=== PATIENT | female | born 2000 | race Caucasian/White ===

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

== ENCOUNTER 2020-01-28 17:57 | Emergency (ER) | payer MEDICAID, SELFPAY ==
[2020-01-28 17:58] VITALS: BP 119/84; PULSE 89; RESP 16; TEMP 35.7; O2SAT 99; BMI 35.2
--- NOTE | 2020-01-28 18:34 | CT_ITS ---
STUDY: CT ABDOMEN AND PELVIS WITHOUT CONTRAST REASON FOR EXAM: Female, 19 years old. ABD PAIN/RECTAL BLEEDING RADIATION DOSAGE (If Supplied By Facility): CTDIvol = ( 14.08 ) mGy, DLP = ( 1201.57 ) mGycm TECHNIQUE: Transaxial images were obtained from the dome of the diaphragm to the symphysis pubis without oral contrast, and without intravenous contrast. Sagittal and coronal images were reconstructed. Individualized dose optimization techniques were used for this CT. COMPARISON: None. FINDINGS: The visualized lung bases are unremarkable. The visualized portions of the heart are within normal limits. Normal liver. Normal gallbladder and extrahepatic biliary system. Normal spleen. Normal pancreas. Normal bilateral adrenal glands. Normal right kidney. Normal left kidney. Normal visualized stomach. Normal small intestine. Normal colon. The appendix is visualized and appears normal. Normal abdominal aorta. Normal inferior vena cava. Normal retroperitoneum. Incompletely distended thick-walled bladder likely of no significance Normal abdominal wall. Normal osseous structures. CT/Abdomen/Pelvis W IV Cont ONLY IMPRESSION: Normal unenhanced CT of the abdomen and pelvis. Electronically Signed: Houston Saul MD at 19:39 EST , Service support ,
--- NOTE | 2020-01-28 18:41 | ED.DCSUM_ITS ---
History of Present Illness Chief Complaint: GI Bleed Informant: Patient - Abdominal Pain/Flank Pain Onset: Today Context: Sudden Onset Timing: Intermittent Quality: Aching Location: Diffuse - Nausea/Vomiting/Emesis GI Symptom: Nausea. Negative for: Vomiting - Diarrhea/Melena/Hematochezia GI Symptom: Hematochezia. Negative for: Diarrhea, Melena Associated Symptoms: Negative for: Dysuria, Frequency, Hematuria Narrative: Patient is a 19-year-old female that denies any significant past medical history presenting with bright red blood per rectum. Patient states she had a normal soft bowel movement this morning. This evening she is over at her grandmother's house and was urinating. She felt that she needed to have a bowel movement but nothing really came out. She then wiped at her rectum just to make sure and knows that there was a large amount of bright red blood and some clots. She states it was heavier than her normal period flow. She is certain it was coming from her rectum however and not her vagina. She states her urine was yellow. She then started to have a copper taste in her mouth and diffuse abdominal discomfort. She came to the emergency room for further evaluation. She denies any history of GI bleeds. She denies any family history of inflammatory bowel disease. She is not on any blood thinners. She denies any bleeding history. No other complaints at this time. Past Medical History - Allergies and Home Meds Allergies/Adverse Reactions: Allergies No Known Allergies Allergy (Verified 01/28/20 18:00) Primary Care Physician: Uzma Quintanilla MD [STAFF PHYSICIAN] - Smoking Status: Current some day smoker Review of Systems General: Denies: Chills, Fever, Sweats Eyes: Denies: Visual changes - bilaterally, Diplopia ENT: Denies: Rhinorrhea, Sore throat Cardiovascular: Denies: Chest pain, Palpitations Respiratory: Denies: Dyspnea, Cough, Dyspnea on exertion Gastrointestinal: Reports: Abdominal pain, Hematochezia. Denies: Nausea, Vomiting, Diarrhea, Melena Genitourinary: Denies: Dysuria, Hematuria, Frequency Musculoskeletal: Denies: Back pain, Extremity Pain Skin: Denies: Rash, Wounds Neurological: Denies: Headache, Weakness, Numbness Physical Exam Vital Signs/Narrative: Vital Signs Temp Pulse Resp BP Pulse Ox 01/28/20 17:58 96.3 F L 89 16 119/84 H 99 Inital Vital Signs reviewed: Yes General: Well nourished, Well developed, No Acute Distress Head: Normocephalic, Atraumatic Eyes: Perrl, EOMI. Negative for: Pale conjunctiva ENT: Moist mucous membranes, No rhinorrhea Neck: Supple, Nontender, No JVD Cardiovascular: Regular rate, Regular rhythm, No murmurs Respiratory: No distress, CTA bilaterally, Chest nontender Abdomen: Soft, Nontender, Nondistended, Normal bowel sounds. Negative for: Guarding, Rebound tenderness Rectal: Nontender, - - No hemorrhoids or fissures appreciated. Bright red blood per rectum present Back: Nontender, Normal Inspection Extremities: Nontender, No edema Skin: Normal color, No rash Neurological: Alert, Oriented x3, Cranial nerves II-XII grossly intact, Normal Strength, Normal Sensation Psychological: Normal affect, Normal Mood Diagnostic/Tx/Re-eval Clinical Impression(s) from Imaging Studies Abdomen/Pelvis CT 01/28/20 18:34 IMPRESSION: Normal unenhanced CT of the abdomen and pelvis. Electronically Signed: Houston Saul MD at 19:39 EST , Service support , Laboratory Data 01/28/20 01/28/20 01/28/20 18:40 18:45 18:45 WBC 9.2 RBC 4.27 Hgb 13.2 Hct 40.4 MCV 94.6 MCH 30.9 MCHC 32.7 RDW Std Deviation 40.9 RDW Coeff of Cassia 11.9 Plt Count 335 MPV 10.5 Immature Gran % (Auto) 0.200 Neut % (Auto) 57.1 Lymph % (Auto) 33.3 [place] % (Auto) 7.7 Eos % (Auto) 1.3 Baso % (Auto) 0.4 Absolute Neuts (auto) 5.3 Absolute Lymphs (auto) 3.07 Nucleated RBC % 0 Sodium 141 Potassium 3.7 Chloride 105 Carbon Dioxide 31.0 Anion Gap 5 BUN 10 Creatinine 0.77 Estim Creat Clear Calc 109.10 Est GFR (MDRD) Af Amer 122 Est GFR (MDRD) Non-Af 101 BUN/Creatinine Ratio 12.9 Glucose 78 Calcium 9.6 Total Bilirubin 0.20 AST 11 L ALT 32 Alkaline Phosphatase 90 Total Protein 8.6 H Albumin 4.0 Globulin 4.6 H Albumin/Globulin Ratio 0.9 Lipase 56 L Urine Color Yellow Urine Clarity Clear Urine pH 6.5 Ur Specific [place] 1.015 Urine Protein 30 H Urine Glucose (UA) Normal Urine Ketones Negative Urine Occult Blood 250 H Urine Nitrite Negative Urine Bilirubin Negative Urine Urobilinogen Normal Ur Leukocyte Esterase 100 H Urine RBC 0-5 SEEN Urine WBC 0-5 SEEN Ur Squamous Epith Cells 5-10 SEEN Urine Bacteria 0 SEEN Urine Mucus 0 SEEN Urine Test Negative - Medical Decision Making Evaluated for 1 episode of bright red blood per rectum. She notes she does have a history of acid reflux which she takes Tums and Prilosec for. She has some evidence of bleeding on rectal exam but no active bleeding. No hemorrhoids appreciated. She is hemodynamically stable in the ER. Her abdomen is soft and nontender. Did obtain a CT given the fact that she was having abdominal pain earlier and this was negative. Her hemoglobin is normal. No acute abnormalities were found. I think patient stable for outpatient follow-up. She not currently have a primary care doctor so she referred to 1 as well as a surgeon in case she has further bleeding and needs to be scoped. Patient verbalizes agreement understand this plan. She discharged home in stable condition. ED Disposition - Plan for ED Patient: Disposition: Home or Assisted Living Diagnosis: Bright red blood per rectum Instructions: ED Hematochezia Stable Referrals: Uzma Quintanilla MD [STAFF PHYSICIAN] - Nathan Hanna MD [STAFF PHYSICIAN] -
[2020-01-28 18:53] LABS: Bacteria 0 SEEN /hpf (None Seen); Mucous, Urine 0 SEEN /hpf (<or=2+)
[2020-01-28 18:56] LABS: Absolute Lymphocyte Count 3.07 X10^3/uL (0.83-4.51); Absolute Neutrophil Count 5.3 X10^3/uL (2.0-7.7); Basophil# 0.04 X10^3/uL; Basophil% 0.4 % (0-1); Eosinophil# 0.12 X10^3/uL; Eosinophils% 1.3 % (0-5); Hematocrit 40.4 % (37-47); Hemoglobin 13.2 g/dL (12.0-15.0); Lymphocyte # 3.07 X10^3/ul (4.0); Lymphocyte % 33.3 % (19-41); Mean Corp Hgb Conc 32.7 g/dL (32-36); Mean Corpuscular Hgb 30.9 pg (27.0-32.0); Mean Corpuscular Volume 94.6 fL (81-99); Mean Platelet Vol. 10.5 fl (6.2-12.0); Monocyte# 0.71 X10^3/uL; Monocyte% 7.7 % (0-10); NRBC Flagged by Analyzer 0 % (0-5); Neutrophil # 5.25 X10^3/uL (2.7-7.7); Neutrophil % 57.1 % (47-70); Platelet Count 335 K/mm3 (150-450); RBC Distribution Width CV 11.9 % (11.6-14.6); RBC Distribution Width SD 40.9 fl (35.1-43.9); Red Blood Count 4.27 M/mm3 (4.2-5.4); White Blood Count 9.2 K/mm3 (4.4-11.0)
[2020-01-28 19:00] LABS: Color, Urine Yellow (Yellow); Glucose, Dipstick Normal (Normal); Ketone-Dipstick Negative (Negative); Leukocyte Esterase-Dipstick 100 /ul (Negative); Nitrite-Dipstick Negative (Negative); Occult Blood-Urine 250 /ul (Negative); Protein-Dipstick 30 mg/dl (Negative); Specific Gravity, Urine 1.015 (1.002-1.030); Urine Bilirubin Dipstick Negative (Negative); Urine Clarity Clear (Clear); Urine Urobilinogen Normal (Normal); Urine pH 6.5 (5.0 - 8.0)
[2020-01-28 19:12] LABS: Internal QC Validated? YES +Cl - CLEAR BKGD; Pregnancy, Urine Negative Negative
[2020-01-28 19:13] LABS: Red Blood Cells-Urine 0-5 SEEN /hpf (0-5); Squamous Epithelial Cells - UA 5-10 SEEN /hpf (5-10); White Blood Cells 0-5 SEEN /hpf (0-5)
[2020-01-28 19:14] LABS: ALB/GLOB Ratio 0.9 RATIO (0.9-2.4); AST(SGOT) 11 U/L (15-37); Alanine Aminotransfer ALT/SGPT 32 U/L (13-56); Alkaline Phosphatase 90 U/L (45-117); Anion Gap 5 (5-15); BUN 10 mg/dL (7-18); BUN/Creat Ratio 12.9 RATIO (10-20); Calcium,Total 9.6 mg/dL (8.5-10.1); Chloride 105 mmol/L (98-107); Creatinine, Serum 0.77 mg/dL (0.55-1.02); EST Glomerular Filtration Rate 101 mL/min (>60); Est Glom Filt Rate - Afr Amer 122 mL/min (>60); Globulin 4.6 g/dL (2.2-4.2); Glucose 78 mg/dL (74-106); Lipase 56 U/L (73-393); Potassium 3.7 mmol/L (3.5-5.1); Protein, Total 8.6 g/dL (6.4-8.2); Sodium Level 141 mmol/L (136-145)
[2020-01-28 20:15] VITALS: BP 120/70; PULSE 68; RESP 16; O2SAT 98
== END 2020-01-28 20:16 | disposition home or self-care (01) ==
PROVIDERS: Emergency Provider Emergency Medicine
DX: K92.2 Gastrointestinal hemorrhage, unspecified (principal); F17.200 Nicotine dependence, unspecified, uncomplicated
CPT/HCPCS: 74177; 80053; 81001; 81025; 83690; 85025; 99283; Q9967; A4216

== ENCOUNTER 2020-05-19 16:05 | Emergency (ER) | payer MEDICAID, SELFPAY ==
[2020-05-19 16:06] VITALS: BP 136/78; PULSE 93; RESP 16; TEMP 36; O2SAT 98; BMI 34.6
--- NOTE | 2020-05-19 16:37 | ED.VIS.GEN ---
History of Present Illness Chief Complaint: GI Bleed Informant: Patient Narrative: Patient is a 19-year-old female presenting with bright red blood per rectum. Patient's been having intermittent episodes of this for the past few months. She has been following with Dr. Hanan, is actually scheduled to have endoscopy tomorrow for further evaluation. Patient is currently on Carafate and Pepcid. Patient states she has had some chronic epigastric burning but this is unchanged. She not had any bleeding a couple days but when she got home she had a bowel movement and with that had a large amount of blood. She states her some small amounts of clots. She denies any associated pain of her rectal area. Patient states she has been having episodes like this and has weather during the scope. She is nervous about the bleeding and is not sure if she should still have the scope since she had another episode of bleeding which is why she came into the emergency room to be evaluated further. She states she been feeling nauseous and lightheaded all day. She also has a headache which she states is not unusual for her. She denies any other complaints at this time. Past Medical History - Allergies and Home Meds Allergies/Adverse Reactions: Allergies No Known Allergies Allergy (Verified 05/19/20 16:05) Primary Care Physician: Uzma Quintanilla MD [Primary Care Provider] - Past Medical History: - - Anxiety, GERD Surgical History: no surgical history Lives: With Family Smoking Status: Current some day smoker Review of Systems General: Denies: Chills, Fever, Sweats Eyes: Denies: Visual changes - bilaterally, Diplopia ENT: Denies: Rhinorrhea, Sore throat Cardiovascular: Denies: Chest pain, Palpitations Respiratory: Denies: Dyspnea, Cough, Dyspnea on exertion Gastrointestinal: Reports: Abdominal pain, Nausea, Hematochezia. Denies: Vomiting, Diarrhea, Melena Genitourinary: Denies: Dysuria, Hematuria, Frequency Musculoskeletal: Denies: Back pain, Extremity Pain Skin: Denies: Rash, Wounds Neurological: Denies: Headache, Weakness, Numbness Psych: Reports: Anxiety Physical Exam Vital Signs/Narrative: Vital Signs Temp Pulse Resp BP Pulse Ox 05/19/20 16:06 96.8 F L 93 16 136/78 H 98 Inital Vital Signs reviewed: Yes General: Well nourished, Well developed, No Acute Distress Head: Normocephalic, Atraumatic Eyes: Perrl, EOMI. Negative for: Pale conjunctiva ENT: Moist mucous membranes, No rhinorrhea Neck: Supple, Nontender, No JVD Cardiovascular: Regular rate, Regular rhythm, No murmurs Respiratory: No distress, CTA bilaterally, Chest nontender Abdomen: Soft, Nontender, Nondistended, Normal bowel sounds. Negative for: Guarding, Rebound tenderness Back: Nontender, Normal Inspection Extremities: Nontender, No edema Skin: Normal color, No rash Neurological: Alert, Oriented x3, Cranial nerves II-XII grossly intact, Normal Strength, Normal Sensation Psychological: Normal affect, Normal Mood Diagnostic/Tx/Re-eval Laboratory Data 05/19/20 05/19/20 05/19/20 16:50 16:50 16:50 WBC 9.6 RBC 4.04 L Hgb 12.3 Hct 37.3 MCV 92.3 MCH 30.4 MCHC 33.0 RDW Std Deviation 39.8 RDW Coeff of Cassia 11.9 Plt Count 348 MPV 10.2 Immature Gran % (Auto) 0.200 Neut % (Auto) 61.7 Lymph % (Auto) 28.4 [place] % (Auto) 8.2 Eos % (Auto) 1.0 Baso % (Auto) 0.5 Absolute Neuts (auto) 5.9 Absolute Lymphs (auto) 2.74 Nucleated RBC % 0 Sodium 140 Potassium 3.7 Chloride 107 Carbon Dioxide 28.0 Anion Gap 5 BUN 14 Creatinine 0.85 Estim Creat Clear Calc 98.83 Est GFR (MDRD) Af Amer 109 Est GFR (MDRD) Non-Af 90 BUN/Creatinine Ratio 16.5 Glucose 83 Calcium 9.5 Total Bilirubin 0.20 AST 13 L ALT 24 Alkaline Phosphatase 84 Total Protein 8.5 H Albumin 3.9 Globulin 4.6 H Albumin/Globulin Ratio 0.8 L Lipase 71 L Serum , Qual NEGATIVE - Medical Decision Making Patient evaluated for another episode of bright red blood per rectum. She appears nontoxic in no acute distress however she is nervous. Vital signs are normal. Patient is an ongoing issue of bright red blood per rectum and is actually scheduled to have endoscopy tomorrow with surgery. Patient was not sure if the another episode of bleeding was going to hinder her ability to do her prep or get her scope tomorrow. Patient's hemodynamics are stable. Her hemoglobin is still normal. I did discuss the case with her surgeon who is agreeable with discharge and going through the prep tomorrow. She is given IV fluids, Zofran, Tylenol (for headache which she gets normally) and a dose of Ativan for anxiety. Patient is counseled on signs and symptoms requiring return to the emergency room. Patient verbalizes agreement and understand this plan. Patient discharged home in stable and improved condition. ED Disposition - Plan for ED Patient: Disposition: Home or Assisted Living Diagnosis: BRBPR (bright red blood per rectum) Instructions: ED Lower GI Bleeding (Stable) Referrals: Nathan Hanna MD [STAFF PHYSICIAN] - Additional Instructions: Please take your bowel prep as instructed when you get home. Please go to your appointment tomorrow as scheduled. Return the emergency room if you have worsening bleeding or feeling to going to pass out. At this time everything looks stable and your blood work.
[2020-05-19 16:47] VITALS: BP 120/73; BP 124/81; BP 139/76; PULSE 78; PULSE 84; PULSE 94
[2020-05-19] MEDS: Ondansetron 4 MG/2 ML Vial IV (16:58)
[2020-05-19] MEDS: 0.9% Normal Saline 1,000 ML 1000 ML IV (16:58)
[2020-05-19] MEDS: LORazepam 2 MG/ML Syringe 0.5 MG IV (17:00)
[2020-05-19] MEDS: Acetaminophen 500 MG Tablet 1000 MG PO (17:02)
[2020-05-19 17:11] LABS: Absolute Lymphocyte Count 2.74 X10^3/uL (0.83-4.51); Absolute Neutrophil Count 5.9 X10^3/uL (2.0-7.7); Basophil# 0.05 X10^3/uL; Basophil% 0.5 % (0-1); Hematocrit 37.3 % (37-47); Hemoglobin 12.3 g/dL (12.0-15.0); Lymphocyte # 2.74 X10^3/ul (4.0); Lymphocyte % 28.4 % (19-41); Mean Corpuscular Hgb 30.4 pg (27.0-32.0); Mean Corpuscular Volume 92.3 fL (81-99); Mean Platelet Vol. 10.2 fl (6.2-12.0); Monocyte# 0.79 X10^3/uL; Monocyte% 8.2 % (0-10); NRBC Flagged by Analyzer 0 % (0-5); Neutrophil # 5.94 X10^3/uL (2.7-7.7); Neutrophil % 61.7 % (47-70); Platelet Count 348 K/mm3 (150-450); RBC Distribution Width CV 11.9 % (11.6-14.6); RBC Distribution Width SD 39.8 fl (35.1-43.9); Red Blood Count 4.04 M/mm3 (4.2-5.4); White Blood Count 9.6 K/mm3 (4.4-11.0)
[2020-05-19 17:26] LABS: Internal QC Validated? YES +Cl - CLEAR BKGD; Pregnancy, Serum, hCG Quali. NEGATIVE Negative
[2020-05-19 17:28] LABS: ALB/GLOB Ratio 0.8 RATIO (0.9-2.4); AST(SGOT) 13 U/L (15-37); Alanine Aminotransfer ALT/SGPT 24 U/L (13-56); Albumin, Serum 3.9 g/dL (3.2-5.0); Alkaline Phosphatase 84 U/L (45-117); Anion Gap 5 (5-15); BUN 14 mg/dL (7-18); BUN/Creat Ratio 16.5 RATIO (10-20); Calcium,Total 9.5 mg/dL (8.5-10.1); Chloride 107 mmol/L (98-107); Creatinine, Serum 0.85 mg/dL (0.55-1.02); EST Glomerular Filtration Rate 90 mL/min (>60); Est Glom Filt Rate - Afr Amer 109 mL/min (>60); Estimated Creatinine Clearance 98.83 ml/min; Globulin 4.6 g/dL (2.2-4.2); Glucose 83 mg/dL (74-106); Lipase 71 U/L (73-393); Potassium 3.7 mmol/L (3.5-5.1); Protein, Total 8.5 g/dL (6.4-8.2); Sodium Level 140 mmol/L (136-145)
[2020-05-19 18:13] VITALS: BP 112/76; PULSE 87; RESP 16; O2SAT 97
== END 2020-05-19 18:14 | disposition home or self-care (01) ==
PROVIDERS: Emergency Provider Emergency Medicine; PCP Family Medicine
DX: K62.5 Hemorrhage of anus and rectum (principal); R42 Dizziness and giddiness; R11.0 Nausea; R51.9 Headache, unspecified; K21.9 Gastro-esophageal reflux disease without esophagitis; F41.9 Anxiety disorder, unspecified; F17.200 Nicotine dependence, unspecified, uncomplicated; Z79.899 Other long term (current) drug therapy
CPT/HCPCS: 80053; 83690; 84703; 85025; 96361; 96374; 96375; 99284; J7030; A4216; J2405

== ENCOUNTER 2020-05-20 08:29 | Day surgery (SDC) | payer MEDICAID, SELFPAY ==
[2020-05-19 16:06] VITALS: BMI 34.6
--- NOTE | 2020-05-20 06:00 | HP_ITS ---
Intake Vital Signs 05/14/20 Weight: 215 lb Intake Visit Reasons: 6 WK GI BLEED Chief Complaint: rectal bleed/stomach pain Executive Steward Required: No Is patient in pain?: Yes (upper abdominal pain) Allergies No Known Allergies Allergy (Verified 05/14/20 09:33) Medications omeprazole 20 mg capsule,delayed release 20 mg PO BID 02/05/20 [History Confirmed 05/14/20] [facility] Medical History Abdominal pain (Acute) Anxiety (Acute) GERD (gastroesophageal reflux disease) (Acute) History of back problems (Acute) Rectal bleeding (Acute) Surgical History History of excision of pilonidal cyst (Acute) Family History Grandmother Breast cancer Social History (Updated 05/14/20 @ 11:[address] Nathan Hanna MD) Smoking Status: Current some day smoker alcohol intake: never substance use type: does not use HPI HPI HPI: EMMY ROTHMAN, is a 19 F who presents to the office today for HPI HPI Surgical H&P: Yes HPI: EMMY ROTHMAN, is a 19 F who presents to the office today for Rectal bleeding. The patient had been started on Prilosec and Carafate. Patient notes no improvement in her epigastric burning. She was instructed to come back if she experiences any more bleeding and she did not but she did experience bleeding several times since her last visit. She says that the last 2 time she experienced rectal bleeding it was very heavy flow and bright red. The patient notes no other abdominal pain except for the epigastric burning. She says it hurts to eat. ROS General General: No weight change, appetite, fatigue, colon cancer, breast cancer or weakness HEENT HEENT: No difficulty swallowing, eye injury, eye surgery, swollen glands or hoarseness Endo Endocrine: No thyroid disease, diabetes mellitus, thyroid cancer, Hair loss, heat intolerance or cold intolerance Skin Skin: No rash or changing moles Breast Breast: No left breast lump, right breast lump, nipple discharge, breast pain, abnormal mammogram, abnormal US or breast enlargement Musc Musculoskeletal: Yes back problems; no arthritis, rheumatoid arthritis, gout or joint pain Cardio Cardiovascular: No murmur, pacemaker, heart disease, atrial fibrillation, high blood pressure, heart attack, heart stent, palpitations, shortness of breat with exertion or chest pain Psych Psychiatric: Yes anxiety; no depression or hearing voices Resp Respiratory: No shortness of breath, No sleep apnea, No cough, No COPD, No asthma, No emphysema, No wheezing Gastro Gastrointestinal: Yes abdominal pain, Yes nausea or vomiting, No diarrhea, No constipation, No blood in stool, Yes acid reflux, No hemorrhoids, Yes ulcers, No gallbladder problem, No black,tarry stools [place] Hematologic: No blood thinners, No blood disorders, No bleeding, No anemia, No blood clots Neuro Neurologic: No system reviewed and no additional complaints, except as docu, No as per HPI, No abnormal walking, No abnormal hearing, No abnormal movements, No abnormal speech, No behavioral changes, No burning sensations, No confusion, No seizure-like activity, No unsteadiness, No dizziness, No localized weakness, No frequent falls, No headache(s), No lack of coordination, No loss of vision, No memory loss, No numbness, No other visual disturbances, No radiating pain, No restless legs, No sensory deficit, No fainting, No tingling, No tremor(s), No weakness, No other Exam Const General: cooperative Orientation: alert, oriented x3 Chest Breast Palpation: No nipple discharge Resp Effort & Inspection: normal respiratory effort Auscultation: clear to auscultation bilaterally Cardio Rate: regular rate Rhythm: regular rhythm Heart Sounds: no murmurs GI Inspection: non-distended Palpation: soft, nontender Assessment & Plan Problems 1. Rectal/anal hemorrhage K62.5 Plan The patient is having continued rectal bleeding and epigastric burning and pain. I recommend EGD and colonoscopy. I explained endoscopy in detail to the patient. I explained the risks including but not limited to stroke or heart attack with anesthesia, perforation of the GI tract, bleeding, infection. I explained that any of these could necessitate further emergency surgery. The patient understands and all questions were answered sufficiently. The patient wishes to proceed with procedure. Nathan Hanna MD Pager: [facility] [address] [place] [address], [address] [place] [address] Office: Orders Orders: Colonoscopy Today K62.5 EGD Today K62.5 Coding Level of Care Code Off vis,est,level 3 Diagnoses Rectal/anal hemorrhage K62.5 Patient was in the emergency room last night for rectal bleeding. Other than that there are no other changes.
[2020-05-20 08:52] LABS: Internal QC Validated? YES +Cl - CLEAR BKGD; Pregnancy, Urine Negative Negative
[2020-05-20 08:56] VITALS: BP 127/62; PULSE 59; RESP 16; TEMP 37.2; O2SAT 96; BMI 35.1
[2020-05-20] MEDS: Lactated Ringers 1,000 ML 100 ML IV (09:00)
--- NOTE | 2020-05-20 09:52 | OP.CCLET_ITS ---
05/20/2020 Uzma Quintanilla [place] [id number] [place] [address] Re : Upper GI endoscopy procedure for Colleen Andrade Dear Dr. Quintanilla This procedure was performed on Wednesday, May 20, 2020. My impressions and recommendations are as follows: Impressions : - Normal esophagus. - Normal stomach. - Normal examined duodenum. - No specimens collected. Recommendations : - Discharge patient to home. - Resume previous diet. - Continue present medications. My findings are described in the full procedure note, which is enclosed. If I can be of further assistance, please feel free to contact me at Doctor phone number(s): , Work: . Sincerely, Nathan Hanna MD 05/20/2020 9:51:53 AM This report has been signed electronically.
--- NOTE | 2020-05-20 09:52 | OP.EGD_ITS ---
Patient Name: Colleen Andrade Procedure Date: 05/20/2020 9:24 AM Date of : 2000 Age: 19 Procedure: Upper GI endoscopy Indications: Hematochezia Providers: Nathan Hanna MD Referring MD: Uzma Quintanilla Medicines: Monitored Anesthesia Care Patient Profile: This is a 19 year old female. Refer to note in patient chart for documentation of history and physical. Complications: No immediate complications. Procedure: Pre-Anesthesia Assessment: - Prior to the procedure, a History and Physical was performed, and patient medications and allergies were reviewed. The patient's tolerance of previous anesthesia was also reviewed. The risks and benefits of the procedure and the sedation options and risks were discussed with the patient. All questions were answered, and informed consent was obtained. Prior Anticoagulants: The patient has taken no previous anticoagulant or antiplatelet agents. After reviewing the risks and benefits, the patient was deemed in satisfactory condition to undergo the procedure. After obtaining informed consent, the endoscope was passed under direct vision. Throughout the procedure, the patient's blood pressure, pulse, and oxygen saturations were monitored continuously. The gastroscope was introduced through the mouth, and advanced to the second part of duodenum. The upper GI endoscopy was accomplished without difficulty. The patient tolerated the procedure well. Scope In: 9:32:07 AM Scope Out: 9:33:33 AM Total Procedure Duration Time 0 hours 1 minute 26 seconds Findings: The esophagus was normal. The stomach was normal. The examined duodenum was normal. Impression: - Normal esophagus. - Normal stomach. - Normal examined duodenum. - No specimens collected. Recommendation: - Discharge patient to home. - Resume previous diet. - Continue present medications. Procedure Code(s): --- Professional --- 62994, Esophagogastroduodenoscopy, flexible, transoral; diagnostic, including collection of specimen(s) by brushing or washing, when performed (separate procedure) Diagnosis Code(s): --- Professional --- K92.1, Melena (includes Hematochezia) CPT copyright 2017 [employer]. All rights reserved. The codes documented in this report are preliminary and upon director of consulting services review may be revised to meet current compliance requirements. Nathan Hanna MD 05/20/2020 9:51:53 AM This report has been signed electronically. Number of Addenda: 0 Note Initiated On: 05/20/2020 9:24 AM
--- NOTE | 2020-05-20 09:54 | OP.COLON_ITS ---
Patient Name: Colleen Andrade Procedure Date: 05/20/2020 9:35 AM Date of : 2000 Age: 19 Procedure: Colonoscopy Indications: Rectal bleeding Providers: Nathan Hanna MD Referring MD: Uzma Quintanilla Medicines: Monitored Anesthesia Care Patient Profile: This is a 19 year old female. Refer to note in patient chart for documentation of history and physical. Last Colonoscopy: none. The patient's first colonoscopy is today. Complications: No immediate complications. Procedure: Pre-Anesthesia Assessment: - Prior to the procedure, a History and Physical was performed, and patient medications and allergies were reviewed. The patient's tolerance of previous anesthesia was also reviewed. The risks and benefits of the procedure and the sedation options and risks were discussed with the patient. All questions were answered, and informed consent was obtained. Prior Anticoagulants: The patient has taken no previous anticoagulant or antiplatelet agents. After reviewing the risks and benefits, the patient was deemed in satisfactory condition to undergo the procedure. After I obtained informed consent, the scope was passed under direct vision. Throughout the procedure, the patient's blood pressure, pulse, and oxygen saturations were monitored continuously. The pediatric colonoscope was introduced through the anus and advanced to the cecum, identified by appendiceal orifice and ileocecal valve. The colonoscopy was performed without difficulty. The patient tolerated the procedure well. The quality of the bowel preparation was good. Scope In: 9:36:12 AM Scope Withdrawal Time 0 hours 6 minutes 23 seconds Scope Out: 9:49:56 AM Total Procedure Duration Time 0 hours 13 minutes 44 seconds Findings: The entire examined colon appeared normal on direct and retroflexion views. Impression: - The entire examined colon is normal on direct and retroflexion views. There was no blood noted. No diverticulosis, No AVM. - No specimens collected. Recommendation: - Discharge patient to home. - Resume previous diet. - Continue present medications. - Repeat colonoscopy at age 49 for screening purposes. - Refer to a hand endband cutter at appointment to be scheduled. Procedure Code(s): --- Professional --- 22606, Colonoscopy, flexible; diagnostic, including collection of specimen(s) by brushing or washing, when performed (separate procedure) Diagnosis Code(s): --- Professional --- K62.5, Hemorrhage of anus and rectum CPT copyright 2017 [employer]. All rights reserved. The codes documented in this report are preliminary and upon clinical coder review may be revised to meet current compliance requirements. Nathan Hanna MD 05/20/2020 9:54:36 AM This report has been signed electronically. Number of Addenda: 0 Note Initiated On: 05/20/2020 9:35 AM
--- NOTE | 2020-05-20 09:54 | OP.CCLET_ITS ---
05/20/2020 Uzma Quintanilla [place] [id number] [address] Re : Colonoscopy procedure for Colleen Lupe Dear Dr. Quintanilla This procedure was performed on Wednesday, May 20, 2020. My impressions and recommendations are as follows: Impressions : - The entire examined colon is normal on direct and retroflexion views. There was no blood noted. No diverticulosis, No AVM. - No specimens collected. Recommendations : - Discharge patient to home. - Resume previous diet. - Continue present medications. - Repeat colonoscopy at age 49 for screening purposes. - Refer to a ore roaster at appointment to be scheduled. My findings are described in the full procedure note, which is enclosed. If I can be of further assistance, please feel free to contact me at Doctor phone number(s): , Work: . Sincerely, Nathan Hanna MD 05/20/2020 9:54:36 AM This report has been signed electronically.
[2020-05-20 09:55] VITALS: BP 109/50; BP 127/62; PULSE 75; RESP 16; TEMP 36.2; O2SAT 98
[2020-05-20 10:00] VITALS: BP 100/54; BP 127/62; PULSE 72; RESP 16; O2SAT 98
[2020-05-20 10:05] VITALS: BP 102/60; BP 127/62; PULSE 61; RESP 16; O2SAT 97
[2020-05-20 10:10] VITALS: BP 107/48; BP 127/62; PULSE 59; RESP 16; TEMP 36.2; O2SAT 98
== END 2020-05-20 10:55 | disposition home or self-care (01) ==
LOC: EN 08:29 → AC 08:29
PROVIDERS: Anesthesiology; PCP Family Medicine; Referring Provider Family Medicine; Visit Provider Surgery
PROC: 0DJD8ZZ Inspection of Lower Intestinal Tract, Via Natural or Artificial Opening Endoscopic (ICD-10-PCS; CPT 45378; principal; 2020-05-20 09:25)
DX: K92.1 Melena (principal); R10.10 Upper abdominal pain, unspecified; Z20.822 Contact with and (suspected) exposure to COVID-19; K21.9 Gastro-esophageal reflux disease without esophagitis; F32.9 Major depressive disorder, single episode, unspecified; F41.9 Anxiety disorder, unspecified; F17.200 Nicotine dependence, unspecified, uncomplicated
CPT/HCPCS: 43235; 45378; 81025; 87426; C9803; J7120; J2405